=== PATIENT | male | born 1985 | race Two or more races ===

== ENCOUNTER 2016-06-28 13:24 | Emergency (ER) | payer OTHER ==
[~2016-06-28] VITALS: Ht 172.7 cm; Wt 117.9 kg
--- NOTE | 2016-06-28 14:00 | PHYS DOC ---
Past Medical History Past Medical History: Other Additional Past Medical Histor: GOUT Past Surgical History: No Surgical History Additional Information: nonsmoker Alcohol Use: None Drug Use: None Adult General Chief Complaint Chief Complaint: BACK PAIN - NO INJURY HPI HPI Patient is a 31 year old male who presents with sudden onset of sharp, stabbing right flank pain that started approximately 1.5 hours ago. He denies any injury to his back. The pain radiates to the right lower abdomen. He has nausea with 1 episode of vomiting. He denies fever or neurologic symptoms. He has not had difficulty urinating or hematuria, but he has not needed to urinate since the pain started. He has a history of gout and takes a daily uric acid lowering medication. His PCP is Dr. Mcclendon. Review of Systems Review of Systems Constitutional: Denies fever or chills. [] Eyes: Denies change in visual acuity, redness, or eye pain. [] HENT: Denies ear pain, nasal congestion or sore throat. [] Respiratory: Denies cough or shortness of breath. [] Cardiovascular: Denies chest pain, palpitations or edema. [] GI: Denies bloody stools or diarrhea. Reports nausea, vomiting, and abdominal pain. : Denies dysuria, hematuria or urinary frequency. Reports right flank pain. Musculoskeletal: Denies back pain or joint pain. [] Integument: Denies rash or skin lesions. [] Neurologic: Denies headache, focal weakness or sensory changes. [] Endocrine: Denies polyuria or polydipsia. [] Psych: Denies anxiety or depression. [] All systems reviewed and negative unless otherwise stated in the HPI. Current Medications Current Medications Current Medications Medications (Trade) Dose Ordered Sig/Gregory Start Time Stop Time Status Last Admin Dose Admin Fentanyl Citrate 50 mcg 50 mcg PRN Q15MIN PRN 06/28/16 14:00 06/28/16 16:04 DC 06/28/16 15:13 50 MCG Ketorolac Tromethamine (Toradol) 30 mg 1X ONCE 06/28/16 15:45 06/28/16 15:46 DC 06/28/16 15:38 30 MG Ondansetron HCl (Zofran) 4 mg 1X ONCE 06/28/16 14:15 06/28/16 14:16 DC 06/28/16 14:16 4 MG Sodium Chloride (Iv Sodium Chloride 0.9% 1000ml Bag) 1,000 ml @ 1,000 mls/hr Q1H 06/28/16 14:15 06/28/16 15:14 DC 06/28/16 14:16 1,000 MLS/HR Allergies Allergies Allergies Coded Allergies Type Severity Reaction Last Updated Verified No Known Drug Allergies 08/13/14 No Physical Exam Physical Exam Constitutional: Well developed, well nourished, no acute distress, non-toxic appearance. [] HENT: Normocephalic, atraumatic, oropharynx moist. [] Eyes: PERRLA, EOMI, conjunctiva normal, no discharge. [] Neck: Normal range of motion, no tenderness, supple, no stridor. [] Cardiovascular: Heart rate regular rhythm, no murmur. [] Lungs & Thorax: Bilateral breath sounds clear to auscultation without wheezes, rales, or rhonchi. [] Abdomen: Bowel sounds normal, soft, RUQ and RLQ tenderness, no masses, no pulsatile masses. [] Skin: Warm, dry, no erythema, no rash. [] Back: No midline tenderness, no CVA tenderness. There is no tenderness to palpation, but the patient reports pain in the area of the right CVA. Extremities: No tenderness, ROM intact, no edema. Distal pulses equal bilaterally. [] Neurologic: Alert and oriented X 3, normal motor function, normal sensory function, no focal deficits noted. [] Psychologic: Affect normal, judgement normal, mood normal. [] Current Patient Data Vital Signs Vital Signs Date Time Temp Pulse Resp B/P Pulse Ox O2 Delivery O2 Flow Rate FiO2 06/28/16 16:03 88 18 120/66 96 Room Air 06/28/16 13:29 98.5 98.5 Lab Values Laboratory Tests Test 06/28/16 14:40 06/28/16 14:45 Urine Collection Type Unknown Urine Color Yellow Urine Clarity Hazy Urine pH 5.5 Urine Specific Ball 1.020 Urine Protein Negativemg/dL (NEG-TRACE) Urine Glucose (UA) Negativemg/dL (NEG) Urine Ketones (Stick) Negativemg/dL (NEG) Urine Blood Large (NEG) Urine Nitrite Negative (NEG) Urine Bilirubin Negative (NEG) Urine Urobilinogen Dipstick 0.2mg/dL (0.2 mg/dL) Urine Leukocyte Esterase Negative (NEG) Urine RBC >40/HPF (0-2) Urine WBC Occ/HPF (0-4) Urine Bacteria 0/HPF (0-FEW) Urine Mucus Mod/LPF White Blood Count 7.6x10^3/uL (4.0-11.0) Red Blood Count 5.10x10^6/uL (4.30-5.70) Hemoglobin 14.7g/dL (13.0-17.5) Hematocrit 45.1% (39.0-53.0) Mean Corpuscular Volume 88fL (79-100) Mean Corpuscular Hemoglobin 29pg (25-35) Mean Corpuscular Hemoglobin Concent 33g/dL (31-37) Red Cell Distribution Width 13.3% (11.5-14.5) Platelet Count 206x10^3/uL (140-400) Neutrophils (%) (Auto) 68% (31-73) Lymphocytes (%) (Auto) 23% (24-48) L Monocytes (%) (Auto) 6% (0-9) Eosinophils (%) (Auto) 1% (0-3) Basophils (%) (Auto) 1% (0-3) Neutrophils # (Auto) 5.2x10^3uL (1.8-7.7) Lymphocytes # (Auto) 1.8x10^3/uL (1.0-4.8) Monocytes # (Auto) 0.5x10^3/uL (0.0-1.1) Eosinophils # (Auto) 0.1x10^3/uL (0.0-0.7) Basophils # (Auto) 0.1x10^3/uL (0.0-0.2) Sodium Level 143mmol/L (136-145) Potassium Level 4.7mmol/L (3.5-5.1) Chloride Level 106mmol/L (98-107) Carbon Dioxide Level 32mmol/L (21-32) Anion Gap 5 (6-14) L Blood Urea Nitrogen 12mg/dL (8-26) Creatinine 1.1mg/dL (0.7-1.3) Estimated GFR (Cockcroft-Gault) 78.6 BUN/Creatinine Ratio 11 (6-20) Glucose Level 98mg/dL (70-99) Calcium Level 9.1mg/dL (8.5-10.1) Total Bilirubin 0.4mg/dL (0.2-1.0) Aspartate Amino Transferase (AST) 39U/L (15-37) H Alanine Aminotransferase (ALT) 120U/L (16-63) H Alkaline Phosphatase 62U/L (46-116) Total Protein 8.1g/dL (6.4-8.2) Albumin 4.0g/dL (3.4-5.0) Albumin/Globulin Ratio 1.0 (1.0-1.7) Laboratory Tests 06/28/16 14:45 Laboratory Tests 06/28/16 14:45 EKG EKG [] Radiology/Procedures Radiology/Procedures REASON: right flank pain PROCEDURE: ABDOMEN PELVIS WO CONTRAST EXAM: Abdomen and pelvis CT without intravenous contrast. HISTORY: Right sided pain. TECHNIQUE: Computed tomographic images of the abdomen and pelvis were obtained without contrast. Multiplanar reformatting was performed. COMPARISON: None. FINDINGS: Evaluation of the lower thorax demonstrates atelectasis. There is no infiltrate or effusion. The heart is normal in size. There is hepatic steatosis. The bladder, pancreas, spleen and adrenal glands are unremarkable. There is mild right hydronephrosis and hydroureter secondary to a 2 mm obstructing stone within the bladder at the right ureterovesical junction. There may be an additional faint punctate nonobstructing right renal stone, possibly artifactual. There is no appendicitis. No abnormally thickened or dilated loop of bowel is seen. No pathologically enlarged lymph node is seen. There is no suspicious osseous lesion. IMPRESSION: 1. Mild right obstructive uropathy secondary to a 2 mm stone within the bladder at the right UVJ. There may be an additional faint punctate nonobstructing right renal stone, possibly artifactual. 2. Hepatic steatosis. Course & Med Decision Making Course & Med Decision Making Pertinent Labs and Imaging studies reviewed. (See chart for details) The patient is a 31-year-old male who presents with right flank pain with radiation to the right abdomen starting shortly prior to arrival in the emergency department. On exam, there is no CVA tenderness, however reports pain in the right flank. Abdomen is soft and nonsurgical with tenderness diffusely on the right side. Urine is positive for blood but no infection. There are no significant laboratory abnormalities. CT of the abdomen and pelvis without contrast shows a 2 mm stone at the right UVJ with mild obstruction. The patient was given fentanyl and Toradol in the emergency department for his pain as well as IV fluids. The patient's IV infiltrated after he had received the majority of a liter of fluids. The IV was moved to a different site as soon as nursing staff became aware of the infiltration. He was reassured that the swelling would resolve. He does have mild obstruction due to the kidney stone, however there is no infection. He is discharged home with prescription for Percocet, Flomax, and Zofran. He is instructed to follow-up with urology. Return precautions were discussed including increased pain, fever, difficulty urinating , or vomiting. The patient verbalizes understanding and agrees with plan. Dragon Disclaimer Dragon Disclaimer This electronic medical record was generated, in whole or in part, using a voice recognition dictation system. Departure Departure Impression: Primary Impression: Kidney stone Disposition: 01 HOME, SELF-CARE Condition: IMPROVED Referrals: ANTONINA MCCLENDON (PCP) MARIBELL JAQUEZ DO Patient Instructions: Kidney Stones, [id number] Additional Instructions: You have a kidney stone on the right side. Please take the prescribed medication as directed. Do not drive or operate heavy machinery while taking pain medication. Please follow-up with the urologist listed below. Return to the emergency department if you have severe pain, fever, difficulty urinating, or other new or concerning symptoms. Scripts Tamsulosin Hcl (Flomax)0.4 Mg Cap.er.24h0.4 Mg PO DAILY #14 TAB Prov:FOREST FLORENTINO 06/28/16 Oxycodone/Apap 5-325 (Percocet 5-325 Mg Tablet)1 Each Tablet1 Tab PO PRN Q6HRS PRN PAIN #20 TAB Prov:FOREST FLORENTINO 06/28/16 Ondansetron (Zofran Odt)4 Mg Tab.rapdis1 Tab SL Q8HRS #10 TAB Prov:FOREST FLORENTINO 06/28/16 FOREST FLORENTINO Jun 28, 2016 14:00
[2016-06-28] MEDS ORDERED: ONDANSETRON PF 4 MG/2 ML VIAL. IV ONE (14:15)
[2016-06-28] MEDS ORDERED: IV NORMAL SALINE 1000ML BAG 1,000 ML IV SCH (14:15)
[2016-06-28] MEDS: FENTANYL PF 100 MCG/2 ML VIAL. IV PRN ×2 (14:17→15:13)
--- NOTE | 2016-06-28 14:44 | RAD ---
EXAM: Abdomen and pelvis CT without intravenous contrast. HISTORY: Right sided pain. TECHNIQUE: Computed tomographic images of the abdomen and pelvis were obtained without contrast. Multiplanar reformatting was performed. COMPARISON: None. FINDINGS: Evaluation of the lower thorax demonstrates atelectasis. There is no infiltrate or effusion. The heart is normal in size. There is hepatic steatosis. The bladder, pancreas, spleen and adrenal glands are unremarkable. There is mild right hydronephrosis and hydroureter secondary to a 2 mm obstructing stone within the bladder at the right ureterovesical junction. There may be an additional faint punctate nonobstructing right renal stone, possibly artifactual. There is no appendicitis. No abnormally thickened or dilated loop of bowel is seen. No pathologically enlarged lymph node is seen. There is no suspicious osseous lesion. IMPRESSION: 1. Mild right obstructive uropathy secondary to a 2 mm stone within the bladder at the right UVJ. There may be an additional faint punctate nonobstructing right renal stone, possibly artifactual. 2. Hepatic steatosis. PQRS Compliance Statement: One or more of the following individualized dose reduction techniques were utilized for this examination: 1. Automated exposure control 2. Adjustment of the mA and/or kV according to patient size 3. Use of iterative reconstruction technique
[2016-06-28 14:54] LABS: BILIRUBIN,URINE NEGATIVE (NEG); GLUCOSE,URINE NEGATIVE (NEG); NITRITE,URINE NEGATIVE (NEG); PH,URINE 5.5; PROTEIN,URINE NEGATIVE (NEG-TRACE); UROBILINOGEN,URINE 0.2 mg/dL (0.2 mg/dL)
[2016-06-28 14:57] LABS: BASO # 0.1 x10^3/uL (0.0-0.2); BASO % 1 % (0-3); EOS % 1 % (0-3); HEMATOCRIT 45.1 % (39.0-53.0); HEMOGLOBIN 14.7 g/dL (13.0-17.5); LYMPH # 1.8 x10^3/uL (1.0-4.8); LYMPH % 23 % (24-48); MEAN CORPUSCULAR HEMOGLOBIN 29 pg (25-35); MEAN CORPUSCULAR HGB CONC 33 g/dL (31-37); MEAN CORPUSCULAR VOLUME 88 fL (79-100); MONO % 6 % (0-9); NEUT % 68 % (31-73); PLATELET COUNT 206 x10^3/uL (140-400); RED CELL DISTRIBUTION WIDTH 13.3 % (11.5-14.5); WHITE BLOOD COUNT 7.6 x10^3/uL (4.0-11.0)
[2016-06-28 15:05] LABS: BACTERIA,URINE 0 /HPF (0-FEW); RBC,URINE >40 /HPF (0-2); WBC,URINE OCC /HPF (0-4)
[2016-06-28 15:13] LABS: CALCIUM 9.1 mg/dL (8.5-10.1); CREATININE 1.1 mg/dL (0.7-1.3); GFR 78.6; POTASSIUM 4.7 mmol/L (3.5-5.1)
[2016-06-28 15:18] LABS: TOTAL BILIRUBIN 0.4 mg/dL (0.2-1.0); TOTAL PROTEIN 8.1 g/dL (6.4-8.2)
[2016-06-28] MEDS ORDERED: KETOROLAC TROMETHAMINE 30 MG/ML SYRINGE. IV ONE (15:45)
[2016-06-28] MEDS ORDERED: TAMS0.4C97 PO (15:46)
[2016-06-28] MEDS ORDERED: ONDA4TAB10 SL (15:46)
[2016-06-28] MEDS ORDERED: OXYC-323 PO (15:46)
[2016-06-28 16:03] VITALS: BP 120/66
== END 2016-06-28 16:04 | disposition home or self-care (01) ==
LOC: ER 13:24
DX: N20.0 Calculus of kidney (principal); M10.9 Gout, unspecified
CPT/HCPCS: 36415; 74176; 80053; 81001; 85027; 96361; 96374; 96375; 99285; J1885; J2405; J3010; J7030